=== PATIENT | male | born 1955 | race Caucasian/White ===

== ENCOUNTER 2021-02-22 14:22 | Emergency (ER) | payer OTHER ==
--- NOTE | 2021-02-22 18:25 | EDM.PDOC ---
<Neel Núñez - Last Filed: 02/22/21 18:15> ED HPI GENERAL MEDICAL PROBLEM - General Chief Complaint: Lower Extremity Injury/Pain Stated Complaint: LT FOOT/ANKLE AREA SWELLING Time Seen by Provider: 02/22/21 17:00 Source of Information: Reports: Patient History Limitations: Reports: No Limitations - History of Present Illness INITIAL COMMENTS - FREE TEXT/NARRATIVE: This is a 65-year-old male with history of CLL who presents with concerns of left lower extremity swelling. Approximately 10 days prior to ED evaluation he did trip and fall putting his dog and had some posterior calf pain. This subsequently resolved. In the meantime he did go on a road trip to [place], spent 4 days in the car total. Yesterday began to notice some apparent bruising and swelling of his right foot that now extends up into the ankle. He was concerned perhaps he has a Achilles tendon injury. He has no history of blood clots. He is not anticoagulated. He has no pain with movement of the foot. Sensation is intact. He has no dyspnea, no chest pain, no cough. - Related Data Allergies Allergy/AdvReac Type Severity Reaction Status Date / Time No Known Allergies Allergy Verified 02/22/21 17:22 Home Meds: Home Meds Acyclovir 400 mg PO BID 02/22/21 [History] Ibrutinib [Imbruvica] 3 cap PO DAILY 02/22/21 [History] Sulfamethoxazole/Trimethoprim [Bactrim Ds Tablet] 1 tab PO ASDIRECTED 02/22/21 [History] allopurinoL [Zyloprim] 1 tab PO ASDIRECTED 02/22/21 [History] atorvaSTATin Calcium [Atorvastatin Calcium] 20 mg PO DAILY 02/22/21 [History] lisinopriL [Lisinopril] 10 mg PO DAILY 02/22/21 [History] Past Medical History HEENT History: Reports: Impaired Vision Cardiovascular History: Reports: Hypertension Musculoskeletal History: Reports: Arthritis Immunologic History: Reports: Immunosuppression Oncologic (Cancer) History: Reports: Leukemia, Other (See Below) Other Oncologic History: CLL Social & Family History - Tobacco Use Tobacco Use Status *Q: Never Tobacco User - Caffeine Use Caffeine Use: Reports: None - Recreational Drug Use Recreational Drug Use: No Review of Systems - Review of Systems Review Of Systems: See Below Constitutional: Reports: No Symptoms Eyes: Reports: No Symptoms Ears: Reports: No Symptoms Nose: Reports: No Symptoms Mouth/Throat: Reports: No Symptoms Respiratory: Reports: No Symptoms Cardiovascular: Reports: No Symptoms GI/Abdominal: Reports: No Symptoms Genitourinary: Reports: No Symptoms Musculoskeletal: Reports: Other (Foot swelling) Skin: Reports: No Symptoms Neurological: Reports: No Symptoms Psychiatric: Reports: No Symptoms ED EXAM, GENERAL - Physical Exam Exam: See Below Exam Limited By: No Limitations General Appearance: Alert, No Apparent Distress Ears: Normal External Exam Nose: Normal Inspection Throat/Mouth: Normal Inspection Head: Atraumatic, Normocephalic Neck: Normal Inspection Respiratory/Chest: Lungs Clear Cardiovascular: Regular Rate, Rhythm GI/Abdominal: Soft, Non-Tender, No Distention Back Exam: Normal Inspection Extremities: Other (Left lower extremity with pitting pedal edema extending up above the ankle. Sensation in the foot is intact. Full ROM without pain.) Psychiatric: Normal Affect, Normal Mood Skin Exam: Warm, Dry Course - Re-Assessments/Exams Free Text/Narrative Re-Assessment/Exam: This is a 65-year-old male who presents with concerns of swollen left lower extremity. This is following a road trip to [place]. He has no history DVT or anticoagulated. On exam he has normal vitals. No respiratory symptoms. No history of CHF. He does have swelling of the left lower extremity with edema above the ankle. No trauma or history consistent with musculoskeletal injury. My primary concern is for a DVT. We are obtaining ultrasound. Patient is signed out to to my clinical shift pending results of the study. 02/22/21 18:18 Departure - Departure Disposition: Home, Self-Care 01 Clinical Impression: Edema, lower extremity - Discharge Information Instructions: Muscle Strain Referrals: PCP,None [Primary Care Provider] - Forms: ED Department Discharge Care Plan Goals: Wrap lower leg for comfort and support, and to reduce swelling. Increase activity as tolerated, elevate the leg when able. Recheck in 1 to 2 weeks if not improving satisfactorily. Sepsis Event Note (ED) - Evaluation Sepsis Screening Result: No Definite Risk <Cristobal Mota - Last Filed: 02/22/21 22:20> Course - Vital Signs Last Recorded V/S: Last Vital Signs Temp 98 F 02/22/21 17:20 Pulse 68 02/22/21 17:20 Resp 20 02/22/21 17:20 BP 180/88 H 02/22/21 17:20 Pulse Ox 99 02/22/21 17:20 - Orders/Labs/Meds Orders: Active Orders 24 hr Category Date Time Status VL Duplex Lwr Ext Veins Ltd Lt [US] Stat Exams 02/22/21 17:32 Taken - Re-Assessments/Exams Free Text/Narrative Re-Assessment/Exam: 02/22/21 22:20 Patient care turned over from Dr. Núñez pending ultrasound of the extremity. This was negative for DVT, 4 inch Lukas wraps were applied to the leg that he thought felt "good". Increase activity as tolerated. Departure - Departure Time of Disposition: 19:01 Sepsis Event Note (ED) - Focused Exam Vital Signs: Vital Signs Temp Pulse Resp BP Pulse Ox 02/22/21 17:20 98 F 68 20 180/88 H 99 02/22/21 16:52 98 F 68 20 180/88 H 99
--- NOTE | 2021-02-23 08:46 | US ---
VL Duplex Lwr Ext Veins Ltd Lt INDICATION: swelling, DVT concern FINDINGS: Ultrasound examination of the lower extremity using Doppler and compressive technique demonstrates that the common femoral, femoral, and popliteal veins are patent, and negative for thrombus. The calf veins were segmentally visualized and are negative where seen. IMPRESSION: Negative for deep venous thrombosis.
== END 2021-02-22 19:01 | disposition home or self-care (01) ==
LOC: JP.ED 14:22
DX: R60.0 Localized edema (principal); I10 Essential (primary) hypertension; Z79.899 Other long term (current) drug therapy
CPT/HCPCS: 93971-26-LT; 93971-LT; 99284-25